=== PATIENT | female | born 2000 | race Caucasian/White ===

== ENCOUNTER 2023-03-27 20:20 | Emergency (ER) | payer MEDICAID, OTHER ==
[~2023-03-27] VITALS: Ht 177.8 cm; Wt 104.7 kg
--- NOTE | 2023-03-27 20:43 | ED GU-Female ---
General Chief Complaint: - Reproductive Stated Complaint: UTI SYMPTOMS Source: patient Exam Limitations: no limitations (RAHAT MENDOZA) History of Present Illness Date Seen by Provider: Mar 27, 2023 Time Seen by Provider: 20:40 Initial Comments Patient is a 30-year-old female who presents ED for frequent urination and pain with urination. Patient states she had a vaginal February 14. She states after the she developed a UTI. Was placed on Macrobid that eventually helped with her urinary symptoms. She states she got checked to make sure her urinary tract infection went away but noted she had a positive urinalysis. She was treated with Bactrim but states she developed a reaction to the Bactrim with facial swelling, redness itching and vomiting. The symptoms have resolved. She reports continued urinary symptoms since of pain with urination, frequent urination and right flank pain. She denies of any fever, headache, dizziness, chest pain, shortness of breath. She does report some generalized abdominal discomfort. Denies of any current vaginal bleeding or vaginal discharge. (RAHAT MENDOZA) Allergies and Home Medications Allergies Coded Allergies: sulfamethoxazole (Verified Adverse Reaction, Unknown, Vomiting, 03/27/23) "VOMITING AND REDNESS" trimethoprim (Verified Adverse Reaction, Unknown, Vomiting, 03/27/23) "VOMITING AND REDNESS" Patient Home Medication List Home Medication List Reviewed: Yes (RAHAT MENDOZA) Cephalexin (Cephalexin) 500 Mg Tablet, 500 MG PO TID Prescribed by: ESTEBAN MCKEE on 03/27/232057 Review of Systems Review of Systems Constitutional: No chills, No fever, No malaise, No weakness EENTM: No ear pain, No blurred vision, No throat pain, No throat swelling Respiratory: No cough, No dyspnea on exertion Cardiovascular: No chest pain Gastrointestinal: abdominal pain; No diarrhea, No nausea; vomiting Genitourinary: burning; denies discharge; dysuria, frequency Musculoskeletal: back pain; No joint pain Skin: No change in color (RAHAT MENDOZA) All Other Systemes Reviewed Negative Unless Noted: Yes (RAHAT MENDOZA) Physical Exam Vital Signs Vital Signs - First Documented 03/27/23 20:28 Temp 37.3 Pulse 85 Resp 16 B/P (MAP) 143/86 (105) Pulse Ox 100 O2 Delivery Room Air (MURPHY RAMIRES DO) Vital Signs Capillary Refill : (RAHAT MENDOZA) Height, Weight, BMI Height: '" Weight: lbs. oz. kg; BMI Method: General Appearance: WD/WN, no apparent distress HEENT: PERRL/EOMI, normal ENT inspection, TMs normal, pharynx normal Neck: non-tender, full range of motion, supple Cardiovascular: regular rate, rhythm, no edema, no gallop, no JVD Respiratory: chest non-tender, lungs clear, normal breath sounds, no respiratory distress, no accessory muscle use Gastrointestinal: normal bowel sounds, soft, no organomegaly, tenderness (Suprapubic tenderness on palpation. Normal bowel sounds throughout. 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, no motor/sensory deficits, alert, normal mood/affect, oriented x 3 Skin: normal color, warm/dry (RAHAT MENDOZA) Progress/Results/Core Measures Suspected Sepsis SIRS Temperature: Pulse: Respiratory Rate: Blood Pressure / Mean: (RAHAT MENDOZA) Results/Orders Lab Results Laboratory Tests Test 03/27/23 20:35 Range/Units Urine Color YELLOW Urine Clarity CLEAR Urine pH 5.5 5-9 Urine Specific [place] >=1.030 1.016-1.022 Urine Protein 1+ H NEGATIVE Urine Glucose (UA) NEGATIVE NEGATIVE Urine Ketones TRACE H NEGATIVE Urine Nitrite NEGATIVE NEGATIVE Urine Bilirubin 1+ H NEGATIVE Urine Urobilinogen 1.0 < = 1.0 MG/DL Urine Leukocyte Esterase 2+ H NEGATIVE Urine RBC (Auto) TRACE H NEGATIVE Urine RBC 10-25 H /HPF Urine WBC 2-5 /HPF Urine Squamous Epithelial Cells 10-25 H /HPF Urine Crystals PRESENT H /LPF Urine Amorphous Sediment MOD DMITRY URATES H /LPF Urine Bacteria FEW H /HPF Urine Casts NONE /LPF Urine Mucus MODERATE H /LPF Urine Culture Indicated YES Urine Test NEGATIVE NEGATIVE (MURPHY RAMIRES DO) Vital Signs/I&O 03/27/23 03/27/23 20:28 21:09 Temp 37.3 37.3 Pulse 85 85 Resp 16 16 B/P (MAP) 143/86 (105) 143/86 Pulse Ox 100 100 O2 Delivery Room Air Room Air (MURPHY RAMIRES DO) Vital Signs/I&O Capillary Refill : (RAHAT MENDOZA) Departure Communication (PCP) Differential diagnosis UTI, PID. Patient with urinary symptoms. She had a vaginal February 14. She reports diagnosed UTI after her has been on Macrobid which seemed to help until last when she was seen at [facility] diagnosed with UTI. She was placed with Bactrim potential allergic reaction no symptoms that resolved. Continue urinary symptoms, burning with urination and frequent urination. Urinalysis with test was ordered. Negative for positive for UTI. She was given a dose of Keflex here. Will discharge with Keflex for the next 7 days. She does not appear toxic or septic. Generalized abdominal discomfort. If any worsening symptoms such as fever, chills, vomiting or severe abdominal pain to return back to ED. Patient agrees with plan of action. Follow-up your PCP in 4 to 5 days for reevaluation with urinalysis. (RAHAT MENDOZA) Impression Primary Impression: Urinary tract infection Disposition: 01 HOME, SELF-CARE Condition: Stable Departure-Patient Inst. Decision time for Depature: 20:58 (RAHAT MENDOZA) Referrals: GERARDO MARTINEZ MD (PCP/Family) Primary Care Physician Patient Instructions: Urinary Tract Infection, Adult (DC) Add. Discharge Instructions: Take antibiotics as prescribed. Follow-up with your primary care physician in 4 to 5 days for reevaluation All discharge instructions reviewed with patient and/or family. Voiced understanding. Scripts Cephalexin (Cephalexin) 500 Mg Tablet 500 MG PO TID for 7 Days, #21 TAB Prov: RAHAT MENDOZA 03/27/23 ATTENDING PHYSICIAN NOTE: I WAS PHYSICALLY PRESENT ER PHYSICIAN, BUT I WAS NOT INVOLVED IN ANY DECISION MAKING OR ANY CARE OF THIS PATIENT AND I AM NOT COLLABORATING PHYSICIAN. (MURPHY RAMIRES DO) RAHAT MENDOZA Mar 27, 2023 20:43 MURPHY RAMIRES DO Mar 28, 2023 00:52
[2023-03-27 20:52] LABS: CLARITY,URINE CLEAR; COLOR,URINE YELLOW; GLUCOSE, URINE (UA) NEGATIVE (NEGATIVE); KETONES,URINE TRACE (NEGATIVE); NITRITE,URINE NEGATIVE (NEGATIVE); PH,URINE 5.5 (5-9); PROTEIN,URINE 1+ (NEGATIVE)
[2023-03-27 20:53] LABS: AMORPHOUS SEDIMENT,UR MOD AMOR URATES /LPF; BACTERIA,URINE FEW /HPF; BILIRUBIN,URINE 1+ (NEGATIVE); LEUKOCYTE ESTERASE ,URINE 2+ (NEGATIVE)
[2023-03-27] MEDS ORDERED: CEPHALEXIN 250 MG CAPSULE PO STA (20:57)
[2023-03-27] MEDS ORDERED: CEPH500T PO (20:58)
[2023-03-27 21:09] VITALS: BP 143/86
== END 2023-03-27 21:09 | disposition home or self-care (01) ==
LOC: ER 20:23
DX: N39.0 Urinary tract infection, site not specified (principal); Z88.2 Allergy status to sulfonamides
CPT/HCPCS: 81000; 84703; 87088; 99283

== ENCOUNTER 2023-04-07 13:15 | Emergency (ER) | payer MEDICAID ==
[~2023-04-07] VITALS: Ht 177.8 cm; Wt 105.0 kg
[~2023-04-07 13:15] MED LIST: CEPH500T PO
--- NOTE | 2023-04-07 14:07 | ED GU-Female ---
General Chief Complaint: - Reproductive Stated Complaint: UTI | VAGINAL DISCHARGE Nursing Triage Note: pt states she was seen in ed 1-2 weeks ago for uti, is still having frequency, burning and lower abd pain. states is 6 weeks pp and has vaginal bleeding, also bleeding when she has a bm Source: patient Exam Limitations: no limitations History of Present Illness Date Seen by Provider: Apr 07, 2023 Time Seen by Provider: 14:05 Initial Comments Patient is a 22-year-old female who presents to ED for burning with urination, frequent urination and lower abdominal cramping. Lower abdominal cramping started 2 days ago. Started having some mild vaginal bleeding. She is about 7 weeks from a vaginal . She states she was evaluated by gynecology 2 to 3 weeks ago and had a pelvic exam, swabs and urinalysis performed. She was treated with Macrobid for UTI. She still continue having urinary symptoms and was seen here March 27 treated with Keflex for a positive UTI. She is continue having the urinary symptoms. Started having vaginal green discharge yesterday. Currently sexually active but not necessarily concern for STDs. she states she has had some mild episodes of diarrhea. No fever, chills, chest pain, shortness of breath, headache, dizziness, visual changes. Allergies and Home Medications Allergies Coded Allergies: sulfamethoxazole (Verified Adverse Reaction, Unknown, Vomiting, 03/27/23) "VOMITING AND REDNESS" trimethoprim (Verified Adverse Reaction, Unknown, Vomiting, 03/27/23) "VOMITING AND REDNESS" Patient Home Medication List Home Medication List Reviewed: Yes Cephalexin (Cephalexin) 500 Mg Tablet, 500 MG PO TID Prescribed by: ESTEBAN MCKEE on 03/27/232057 Review of Systems Review of Systems Constitutional: No chills, No diaphoresis, No malaise EENTM: No hearing loss Respiratory: No cough, No dyspnea on exertion Cardiovascular: No chest pain Gastrointestinal: abdominal pain; No nausea, No vomiting Genitourinary: burning; denies discharge; dysuria, frequency Musculoskeletal: No back pain, No joint pain Skin: No change in color, No change in hair/nails All Other Systemes Reviewed Negative Unless Noted: Yes Past Pyhptno-Agsqxe-Hltfdh Hx Patient Social History Tobacco Use?: No Substance use?: No Alcohol Use?: No Physical Exam Vital Signs Vital Signs - First Documented 04/07/23 13:20 Temp 37.1 Pulse 74 Resp 18 B/P (MAP) 140/96 (111) Pulse Ox 98 Capillary Refill : Height, Weight, BMI Height: '" Weight: lbs. oz. kg; 33.00 BMI Method: General Appearance: WD/WN, no apparent distress HEENT: PERRL/EOMI, normal ENT inspection, TMs normal, pharynx normal Neck: non-tender, full range of motion, supple Cardiovascular: regular rate, rhythm, no edema, no gallop, no JVD Respiratory: chest non-tender, lungs clear, normal breath sounds, no respiratory distress, no accessory muscle use Gastrointestinal: normal bowel sounds, soft, no organomegaly, tenderness (Suprapubic tenderness, bilateral lower abdominal tenderness. Normal bowel sounds throughout. 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, no motor/sensory deficits, alert, normal mood/affect, oriented x 3 Skin: normal color, warm/dry Progress/Results/Core Measures Suspected Sepsis SIRS Temperature: Pulse: 74 Respiratory Rate: 18 Blood Pressure 140 /96 Mean: 111 Results/Orders Lab Results Laboratory Tests Test 04/07/23 13:52 Range/Units Urine Color YELLOW Urine Clarity CLEAR Urine pH 6.0 5-9 Urine Specific [place] >=1.030 1.016-1.022 Urine Protein NEGATIVE NEGATIVE Urine Glucose (UA) NEGATIVE NEGATIVE Urine Ketones NEGATIVE NEGATIVE Urine Nitrite NEGATIVE NEGATIVE Urine Bilirubin NEGATIVE NEGATIVE Urine Urobilinogen 0.2 < = 1.0 MG/DL Urine Leukocyte Esterase 1+ H NEGATIVE Urine RBC (Auto) TRACE H NEGATIVE Urine RBC 0-2 /HPF Urine WBC 2-5 /HPF Urine Squamous Epithelial Cells 5-10 /HPF Urine Crystals NONE /LPF Urine Bacteria NEGATIVE /HPF Urine Casts NONE /LPF Urine Mucus NEGATIVE /LPF Urine Culture Indicated NO Urine Test NEGATIVE NEGATIVE Micro Results Microbiology 04/07/23 Wet Prep - Final, Complete My Orders Orders - RAHAT MENDOZA Ua Culture If Indicated (04/07/23 13:37) Hcg,Qualitative Urine (04/07/23 13:37) Wet Prep (04/07/23 13:37) Neisseria Gonorrhea Swab (04/07/23 13:37) Chlamydia Trachomatis Swab (04/07/23 13:37) Vital Signs/I&O 04/07/23 04/07/23 13:20 14:46 Temp 37.1 37.1 Pulse 74 74 Resp 18 18 B/P (MAP) 140/96 (111) 140/96 Pulse Ox 98 98 Capillary Refill : Blood Pressure Mean: 111 Departure Communication (PCP) Reviewed previous ER visits, H&P, lab testing. Differential diagnoses UTI, , menstrual cycle, PID. Patient is a 22-year-old female who presents ED with urinary symptoms for the past 4 months. She had a vaginal delivery 7 weeks ago. She has had her 6-week follow-up with Dr. Freeman at [facility] which was unremarkable. She states she had a pelvic exam and swabs performed. She was seen here March 27 diagnosed with UTI placed on Keflex without much improvement. She was previously on Macrobid prior. Lower abdominal cramping with some mild vaginal bleeding. She did have vaginal bleeding for 4 weeks but that did stop. Would not suspect complications 7 weeks out. Patient urinalysis culture grew out Normal urethral agueda and or call design bacteria from the skin vaginal or rectal areas. She did not have a pelvic swab performed at that time. Refused pelvic exam but agreed to self swab. Wet mount with STD cultures. Wet mount was unremarkable but did note some few white blood cells. Chlamydia and gonorrhea currently pending. She was not treated prophylactically. Urinalysis without evidence of infection. Soft abdomen. Vital signs stable. Afebrile. Discussed with patient we will not start on antibiotics at this time. No sex intercourse until results. Avoid excessive cleaning or fragrances or sexual intercourse at this time. Due to her length of her urinary symptoms suggest following up with her gynecology is for further evaluation. Not necessarily concern for complications at this time and she did have a work-up which she stated was unremarkable. No excessive heavy bleeding. Denies any weakness. Vital signs stable. Return precaution were discussed with patient. Impression Primary Impression: Dysuria Additional Impression: Vaginal discharge Disposition: 01 HOME, SELF-CARE Condition: Stable Departure-Patient Inst. Decision time for Depature: 14:41 Referrals: GERARDO FREEMAN MD (PCP/Family) Primary Care Physician Patient Instructions: Vaginal discharge Add. Discharge Instructions: Recommend following up with Dr. Freeman. We will call with positive results. Avoid excessive vaginal cleaning. Avoid any fragrances or soaps with fragrances. Recommend no sex intercourse until results All discharge instructions reviewed with patient and/or family. Voiced understanding. RAHAT MENDOZA Apr 07, 2023 14:07
[2023-04-07 14:15] LABS: BILIRUBIN,URINE NEGATIVE (NEGATIVE); CLARITY,URINE CLEAR; COLOR,URINE YELLOW; GLUCOSE, URINE (UA) NEGATIVE (NEGATIVE); KETONES,URINE NEGATIVE (NEGATIVE); LEUKOCYTE ESTERASE ,URINE 1+ (NEGATIVE); NITRITE,URINE NEGATIVE (NEGATIVE); PROTEIN,URINE NEGATIVE (NEGATIVE)
[2023-04-07 14:18] LABS: BACTERIA,URINE NEGATIVE /HPF; RBC,URINE 0-2 /HPF
[2023-04-07 14:46] VITALS: BP 140/96
== END 2023-04-07 14:46 | disposition home or self-care (01) ==
LOC: EDUNIT# 13:15 → ER 13:17
DX: N89.8 Other specified noninflammatory disorders of vagina (principal); N39.0 Urinary tract infection, site not specified
CPT/HCPCS: 36415; 81000; 84703; 87210; 87491; 87591; 99282